=== PATIENT | female | born 1950 | race Caucasian/White ===

== ENCOUNTER → 2019-01-15 09:02 | Outpatient (CLI) | payer MEDICARE, OTHER, SELFPAY ==
[2019-01-15 09:40] LABS: Hemoglobin A1C% w Est Avg Glu 6.1 % (4.0-6.0)
[2019-01-15 10:13] LABS: Alanine Aminotransferase 55 IU/L (<35); Albumin 4.5 g/dL (3.5-5.0); Albumin Globulin Ratio 1.8 (1.0-2.8); Alkaline Phosphatase 82 U/L (38-126); Aspartate Aminotransferase 56 IU/L (14-36); BUN Creatinine Ratio 13.8 (6-22); Bilirubin Total 1.2 mg/dL (0.2-1.3); Blood Urea Nitrogen 11 mg/dL (7-17); Calcium 10.3 mg/dL (8.4-10.2); Carbon Dioxide 31 mmol/L (22-32); Chloride 103 mmol/L (98-107); Cholesterol 195 mg/dL (140-199); Estimated Glomerular Filt Rate > 60.0 mL/min (>60); Globulin 2.5 g/dL (1.7-4.1); Glucose 116 mg/dL (80-110); HDL Cholesterol 60 mg/dL (40-60); HEMOLYSIS < 15 (0-50); LDL Cholesterol Calculated 115 mg/dL (<100); Potassium 5.6 mmol/L (3.4-5.1); Sodium 142 mmol/L (137-145); Triglycerides 101 mg/dL (35-150)
[2019-01-15 10:14] LABS: Creatinine Urine Random 64.9 mg/dL
[2019-01-15 10:23] LABS: Microalbumi Creatinin Ratio Ur 9.2 ug/mg CR (<30); Microalbumin Urine Random < 0.6 mg/dL (0-1.6)
== END ==
PROVIDERS: PCP Family Medicine; Visit Provider Family Medicine
DX: R73.03 Prediabetes (principal)
CPT/HCPCS: 36415; 80053; 80061; 82043; 82570; 83036

== ENCOUNTER → 2019-01-16 10:05 | Outpatient (CLI) | payer MEDICARE, OTHER, SELFPAY ==
--- NOTE | 2019-01-16 10:08 | DI.RAD.S_ITS ---
PROCEDURE: XR KNEE RT 3V INDICATIONS: right knee pain TECHNIQUE: 3 views of the knee were acquired. COMPARISON: None. FINDINGS: Bones: No fractures or dislocations. No suspicious bony lesions. Superior patellar spurring. Mild joint degeneration Soft tissues: Small joint effusion. No suspicious soft tissue calcifications. IMPRESSION: Mild right knee joint degeneration Small joint effusion. If the patient's pain or other symptoms persist, consider further evaluation with MRI Dictated by: Jose Fuller M.D. on 01/16/2019 at 13:06 Approved by: Jose Fuller M.D. on 01/16/2019 at 13:10
== END ==
PROVIDERS: PCP Family Medicine; Visit Provider Family Medicine
DX: M25.561 Pain in right knee (principal); M17.11 Unilateral primary osteoarthritis, right knee; M25.461 Effusion, right knee
CPT/HCPCS: 73562

== ENCOUNTER → 2019-03-10 09:03 | Outpatient (CLI) | payer MEDICARE, OTHER, SELFPAY ==
[2019-03-10 10:09] LABS: Alanine Aminotransferase 54 IU/L (<35); Aspartate Aminotransferase 55 IU/L (14-36); Calcium 9.8 mg/dL (8.4-10.2)
== END ==
PROVIDERS: PCP Family Medicine; Visit Provider Family Medicine
DX: E83.52 Hypercalcemia (principal); R89.9 Unspecified abnormal finding in specimens from other organs, systems and tissues; R94.5 Abnormal results of liver function studies; E78.5 Hyperlipidemia, unspecified
CPT/HCPCS: 36415; 82310; 84450; 84460